=== PATIENT | male | born 1970 | race Hispanic/Latino ===

== ENCOUNTER 2018-04-06 12:28 | Emergency (ER) | payer SELFPAY ==
[2018-04-06 14:23] LABS: Bilirubin,Urine NEG (Negative); Blood,Urine NEG (Negative); Color,Urine Yellow (Yellow); Mucus,Urine FEW /HPF; Protein,Urine <15 mg/dL mg/dL (Negative); Urobilinogen,Urine < 2.0 mg/dL (<2.0)
[2018-04-06 14:30] LABS: WBC,Urine < 1.0 /HPF (0.0-6.0)
--- NOTE | 2018-04-06 14:56 | Emergency Department Report ---
ED Male HPI - General Chief complaint: Medical Clearance Stated complaint: TROUBLE URINATING Time Seen by Provider: 04/06/18 13:48 Source: patient, family Mode of arrival: Ambulatory Limitations: No Limitations - History of Present Illness Initial comments: This is a 47-year-old male that presents with urgency and difficulty urinating for the past 2 weeks. History of type 2 diabetes, depression, anxiety , and alcohol abuse. He is currently in treatment for alcohol abuse. Patient reports increased water intake with minimal improvement of symptoms. He is having difficulty starting stream and when it starts it is a dripping stream. No past history of BPH. He has not followed up with primary care provider in a couple years due to no insurance. Admits to straining with urination, frequency , and urgency. Denies history of, penile discharge, testicular swelling or pain , nausea or vomiting, and abdominal pain. MD Complaint: other (difficulty voiding) -: week(s) (2 weeks ) Radiation: none Severity: mild Severity scale (0 -10): 2 Consistency: constant Improves with: urination Worsens with: none denies other symptoms - Related Data Sexually active: Yes Previous Rx's Medication Instructions Recorded Last Taken Type Tamsulosin [Flomax] 0.4 mg PO QDAY #30 cap 04/06/18 Unknown Rx Allergies Allergy/AdvReac Type Severity Reaction Status Date / Time No Known Allergies Allergy Unverified 04/06/18 12:39 ED Review of Systems ROS: Stated complaint: TROUBLE URINATING Other details as noted in HPI Constitutional: denies: chills, fever Respiratory: denies: cough, shortness of breath, wheezing Cardiovascular: denies: chest pain, palpitations Gastrointestinal: denies: abdominal pain, nausea, diarrhea Genitourinary: urgency, frequency. denies: dysuria, hematuria, discharge, testicular pain, testicular mass Neurological: denies: headache, weakness, paresthesias Psychiatric: denies: anxiety, depression ED Past Medical Hx - Past Medical History Hx Diabetes: Yes Hx Psychiatric Treatment: Yes (anxiety, depression, ETOH) - Social History Smoking Status: Current Every Day Smoker - Medications Home Medications: Home Medications Medication Instructions Recorded Confirmed Last Taken Type Tamsulosin [Flomax] 0.4 mg PO QDAY #30 cap 04/06/18 Unknown Rx ED Physical Exam - General Limitations: No Limitations General appearance: alert, in no apparent distress - Respiratory Respiratory exam: Present: normal lung sounds bilaterally. Absent: respiratory distress - Cardiovascular Cardiovascular Exam: Present: regular rate, normal rhythm, normal heart sounds. Absent: systolic murmur, diastolic murmur, rubs, gallop - GI/Abdominal GI/Abdominal exam: Present: soft, normal bowel sounds. Absent: organomegaly, mass - Neurological Exam Neurological exam: Present: alert, oriented X3 - Psychiatric Psychiatric exam: Present: normal affect, normal mood - Skin Skin exam: Present: warm, dry, intact, normal color. Absent: rash ED Course Vital Signs 04/06/18 12:32 Temperature 98.5 F Pulse Rate 105 H Respiratory 16 Rate Blood Pressure 128/80 [Left] O2 Sat by Pulse 96 Oximetry ED Medical Decision Making - Lab Data Result diagrams: 04/06/18 14:59 - Medical Decision Making This is a 47 y.o. male that presents with difficulty voiding for 2 weeks. Patient is stable and was examined by me. Vitals normal. Obtained urinalysis, PSA, and BMP. Physical findings susceptible of BPH. Given Flomax 0.4 mg by mouth once in the ER. All labs within normal limits. Start Flomax and follow up with urology. Discussed plan with patient and he agreed with plan. Discharged home in stable condition. Follow up with PCP and urology in 24-72 hours. Critical care attestation.: If time is entered above; I have spent that time in minutes in the direct care of this critically ill patient, excluding procedure time. ED Disposition Clinical Impression: BPH (benign prostatic hyperplasia) Qualifiers: Lower urinary tract symptom presence: symptoms present Lower urinary tract symptom detail: straining on urination Qualified Code(s): N40.1 - Benign prostatic hyperplasia with lower urinary tract symptoms Disposition: TO HOME OR SELFCARE Is pt being admited?: No Does the pt Need Aspirin: No Condition: Stable Instructions: Benign Prostatic Hypertrophy (ED) Additional Instructions: Take Flomax daily. Follow-up with urology within the next week. Follow-up with the primary care provider referred to [facility]. Prescriptions: Tamsulosin [Flomax] 0.4 mg PO QDAY #30 cap Referrals: [facility] [Outside] - 3-5 Days [facility] [Outside] - 3-5 Days [facility] [Provider Group] - 3-5 Days Time of Disposition: 16:09 Print Language: AFGHAN
[2018-04-06 15:49] LABS: BUN/Creatinine Ratio 14; Blood Urea Nitrogen 11 mg/dL (9-20); Hemolysis Index 22
[2018-04-06] MEDS ORDERED: FLOMAX PO ONE (16:15)
[2018-04-06 17:03] VITALS: BP 118/92
== END 2018-04-06 16:55 | disposition home or self-care (01) ==
LOC: ED 12:28
DX: N40.1 Benign prostatic hyperplasia with lower urinary tract symptoms (principal); R39.15 Urgency of urination; R35.0 Frequency of micturition; E11.9 Type 2 diabetes mellitus without complications; F41.9 Anxiety disorder, unspecified; F32.9 Major depressive disorder, single episode, unspecified; F17.200 Nicotine dependence, unspecified, uncomplicated
CPT/HCPCS: 36415; 80048; 81001; 84153

== ENCOUNTER 2019-03-13 23:28 | Emergency (ER) | payer OTHER ==
--- NOTE | 2019-03-14 00:04 | Emergency Department Report ---
ED Psych HPI - General Stated Complaint: MH Time Seen by Provider: 03/13/19 23:55 - History of Present Illness Initial Comments: Patient is 48 years old male with history of depression and chronic alcoholism. Patient presented to the ER complaining of depression and suicidal ideation. Patient stated that he is thinking about hanging himself. Patient had a previous suicidal attempt by hanging himself. Patient stated that he has been drinking straight for the last 3 weeks. Patient shaking but denied any hallucination. CIWA protocol initiated. Patient denied any homicidal ideation, auditory or visual hallucination. MD Complaint: suicidal ideation, feels depressed Associated Psychiatric Symptoms: depression, suicidal ideation History of same: Yes Quality: constant Context: recent alcohol abuse Associated Symptoms: denies other symptoms If Self Harm: admits thoughts of, has plan, self-inflicted trauma - Related Data Home Medications Medication Instructions Recorded Confirmed Last Taken No Known Home Medications [No 03/13/19 03/13/19 Unknown Reported Home Medications] Allergies Allergy/AdvReac Type Severity Reaction Status Date / Time No Known Allergies Allergy Verified 04/06/18 16:16 ED Review of Systems ROS: Stated complaint: MH Other details as noted in HPI Comment: All other systems reviewed and negative Constitutional: denies: chills, fever Respiratory: denies: cough, shortness of breath, SOB with exertion Cardiovascular: denies: chest pain, palpitations Gastrointestinal: denies: abdominal pain, nausea, vomiting Musculoskeletal: denies: back pain Neurological: denies: headache ED Past Medical Hx - Past Medical History Previous Medical History?: Yes Hx Diabetes: No Hx Psychiatric Treatment: Yes (anxiety, depression, ETOH) - Surgical History Past Surgical History?: Yes Additional Surgical History: Left arm pins and rods - Social History Smoking Status: Current Every Day Smoker Substance Use Type: Alcohol - Medications Home Medications: Home Medications Medication Instructions Recorded Confirmed Last Taken Type No Known Home Medications [No 03/13/19 03/13/19 Unknown History Reported Home Medications] ED Physical Exam - General General appearance: alert, in no apparent distress, anxious - Head Head exam: Present: atraumatic, normocephalic, normal inspection - ENT ENT exam: Present: normal exam, normal orophraynx, mucous membranes moist - Neck Neck exam: Present: normal inspection, full ROM. Absent: tenderness, meningismus, lymphadenopathy, thyromegaly - Respiratory Respiratory exam: Present: normal lung sounds bilaterally - Cardiovascular Cardiovascular Exam: Present: regular rate, normal rhythm, normal heart sounds - GI/Abdominal GI/Abdominal exam: Present: soft, normal bowel sounds. Absent: distended, tenderness, guarding, rebound, rigid - Extremities Exam Extremities exam: Present: normal inspection, full ROM - Neurological Exam Neurological exam: Present: alert, oriented X3, CN II-XII intact, normal gait, reflexes normal - Psychiatric Psychiatric exam: Present: depressed, anxious, suicidal ideation. Absent: agitated, flat affect, manic, homicidal ideation - Skin Skin exam: Present: warm, intact, normal color ED Course Vital Signs 03/13/19 23:46 Temperature 98.0 F Pulse Rate 102 H Respiratory 18 Rate Blood Pressure 115/78 Blood Pressure 115/78 [Left] O2 Sat by Pulse 96 Oximetry Critical care attestation.: If time is entered above; I have spent that time in minutes in the direct care of this critically ill patient, excluding procedure time. ED Disposition Clinical Impression: Suicidal ideation, Alcohol abuse Disposition: [id number]/TX-[id number] PS[facility] HOSP/PSY UNIT Is pt being admited?: No Condition: Stable
[2019-03-14 00:30] LABS: Lymphocytes % (Auto) 23.7 % (13.4-35.0); Mean Corpuscular HGB Conc 33 % (32-34); Mean Corpuscular Volume 92 fl (84-94); Platelet Count 448 K/mm3 (140-440); Red Blood Count 4.89 M/mm3 (3.65-5.03); Red Cell Distribution Width 13.5 % (13.2-15.2)
[2019-03-14 00:31] LABS: Basophils # (Auto) 0.1 K/mm3 (0.0-0.1); Basophils % (Auto) 1.1 % (0.0-1.8); Eosinophils # (Auto) 0.1 K/mm3 (0.0-0.4); Eosinophils % (Auto) 0.8 % (0.0-4.3); Lymphocytes # (Auto) 2.8 K/mm3 (1.2-5.4); Monocytes # (Auto) 1.2 K/mm3 (0.0-0.8); Monocytes % (Auto) 9.9 % (0.0-7.3)
[2019-03-14 00:45] LABS: BUN/Creatinine Ratio 21; Blood Urea Nitrogen 19 mg/dL (9-20); Calcium 8.3 mg/dL (8.4-10.2); Hemolysis Index 9
[2019-03-14 00:56] LABS: Bilirubin,Urine NEG (Negative); Blood,Urine NEG (Negative); Color,Urine Yellow (Yellow); Mucus,Urine FEW /HPF; Protein,Urine <15 mg/dL mg/dL (Negative); Urobilinogen,Urine < 2.0 mg/dL (<2.0); WBC,Urine < 1.0 /HPF (0.0-6.0)
[2019-03-14 01:07] LABS: Amphetamine Screen,Urine PRESUMPTIVE NEGATIVE; Benzodiazepines Screen,Urine PRESUMPTIVE NEGATIVE; Cannabinoid Screen,Urine PRESUMPTIVE NEGATIVE; Cocaine Screen,Urine PRESUMPTIVE NEGATIVE; Methadone Screen,Urine PRESUMPTIVE NEGATIVE; Opiate Screen,Urine PRESUMPTIVE NEGATIVE
[2019-03-14] MEDS: ATIVAN PO PRN ×4 (02:39→17:37)
[2019-03-14] MEDS ORDERED: ATIVAN ONE (02:43)
--- NOTE | 2019-03-14 12:16 | Consultation ---
History of Present Illness - Reason for Consult Consult date: 03/14/19 Reason for consult: Mental Health Evaluation Requesting physician: SHERYL SHEPHERD - Chief Complaint Chief complaint: "I my life is useless" - History of Present Psychiatric Illness 48 y.o. white male who presented to the ER for SI's and ETOH. Today the patient is cooperative during the assessment. He stated that his life is "useless." He stated struggling with alcohol (etoh) for 30 plus years. He stated that he was dx with depression and anxiety several years ago. He stated he feel "hopeless" because nothing goes well in his life. He rate his depression/anxiety 7/10, with 10 being the worse. He stated that he has taken several antidepressants in the past. He acknowledged that he would hang himself if he had the chance. He stated that he have attempted suicide in the past. He denies SI/HI's and AVH's. He denies a poor appetite and erratic sleep. He denies recreational drug use. Medications and Allergies Allergies Allergy/AdvReac Type Severity Reaction Status Date / Time No Known Allergies Allergy Verified 04/06/18 16:16 Home Medications Medication Instructions Recorded Confirmed Last Taken Type No Known Home Medications [No 03/13/19 03/13/19 Unknown History Reported Home Medications] Active Meds: Active Medications Lorazepam (Ativan) 2 mg PO Q1HR PRN PRN Reason: ABHILASH-Capo 8-15 Last Admin: 03/14/19 02:39 Dose: 2 mg Documented by: Lorazepam (Ativan) 4 mg PO Q1HR PRN PRN Reason: ABHILASH-Capo 16- Last Admin: 03/14/19 09:20 Dose: 4 mg Documented by: Past psychiatric history - Past Medical History Past Medical History: No medical history Past Surgical History: No surgical history - past Psychiatric treatment and history psychiatric treatment history: Hx of alcohol abuse and depression. Fam hx of alcohol abuse. - Social History Social history: other (Homeless) Mental Status Exam - Vital signs Last Vital Signs Temp 96.2 F L 03/14/19 08:11 Pulse 98 H 03/14/19 08:11 Resp 18 03/14/19 08:11 BP 115/82 03/14/19 08:11 Pulse Ox 95 03/14/19 08:11 - Exam Narrative exam: MSE: Appearance: cooperative Behavior: poor eye contact Speech: regular rate and tone Mood: "depressed" Affect: congruent to mood Thought Process: circumstantial Thought Content: denies HI's and AVH's Motor Activity: sitting up in bed Cognition: A/O x3 Insight: fair Judgment: poor \\ Results Result Diagrams: 03/14/19 00:06 03/14/19 00:06 Abnormal lab results 03/14/19 03/14/19 03/14/19 Range/Units 00:06 00:06 00:06 WBC (4.5-11.0) K/mm3 Plt Count (140-440) K/mm3 Desha % (Auto) (0.0-7.3) % Desha # (0.0-0.8) K/mm3 Sodium 132 L (137-145) mmol/L Chloride 93.0 L (98-107) mmol/L Glucose 107 H (75-100) mg/dL Calcium 8.3 L (8.4-10.2) mg/dL Salicylates < 0.3 L (2.8-20.0) mg/dL Acetaminophen < 5.0 L (10.0-30.0) ug/mL Plasma/Serum Alcohol (0-0.07) % 03/14/19 03/14/19 Range/Units 00:06 00:06 WBC 11.7 H (4.5-11.0) K/mm3 Plt Count 448 H (140-440) K/mm3 Desha % (Auto) 9.9 H (0.0-7.3) % Desha # 1.2 H (0.0-0.8) K/mm3 Sodium (137-145) mmol/L Chloride (98-107) mmol/L Glucose (75-100) mg/dL Calcium (8.4-10.2) mg/dL Salicylates (2.8-20.0) mg/dL Acetaminophen (10.0-30.0) ug/mL Plasma/Serum Alcohol 0.13 H (0-0.07) % All other labs normal. Assessment and Plan Assessment and plan: Impression: MDD, Severe Type. Alcohol Use DO. Unspecified Anxiety DO. Today the patient is cooperative during the assessment. Mild to Moderate tremors noted (etoh). DDx: Alcohol Induced Mood DO Recommendation/Plan: Transitioned the patient to a 2013. Start Zoloft 50 mg PO daily for depression and Buspar 7.5 mg Po BID for anxiety. Continue CIWA. Discussed possible suicidality/medication induced rylan with the patient reference Zoloft. Informed the patient's assigned nurse that an order for line of sight for safety was placed. Dispo: The patient was referred to inpatient psy services. Will staff with Dr Sania Roldan.
[2019-03-14] MEDS: BUSPAR PO SCH ×2 (13:07→21:48)
[2019-03-14] MEDS: ZOLOFT PO SCH (13:07)
--- NOTE | 2019-03-15 09:44 | Progress Note ---
Subjective - Reason for Consult Consult date: 03/15/19 Reason for consult: Psychiatry Follow-up - Chief Complaint Chief complaint: "I didn't sleep well last night" 48 y.o. white male who presented to the ER for SI's and ETOH. Today the patient is calm during the assessment. He stated that he didn't sleep well last night. He continue to endorse SI's, but would not confirm or deny a suicide plan. He denies HI's and AVH's. He denies any side effects of his medications. Mental Status Exam - Vital signs Last Vital Signs Temp 97 F L 03/15/19 08:12 Pulse 91 H 03/15/19 08:12 Resp 18 03/15/19 08:12 BP 125/87 03/15/19 08:12 Pulse Ox 97 03/15/19 08:12 - Exam Narrative exam: MSE: Appearance: calm Behavior: poor eye contact Speech: regular rate and tone Mood: "depressed," withdrawn Affect: congruent to mood Thought Process: circumstantial Thought Content: denies HI's and AVH's Motor Activity: sitting up in bed Cognition: A/O x3 Insight: vague Judgment: poor \\ Assessment and Plan Impression: MDD, Severe Type. Alcohol Use DO. Unspecified Anxiety DO. Today the patient is calm during the assessment. Mild to Moderate tremors noted (etoh). DDx: Alcohol Induced Mood DO Recommendation/Plan:Continue 2012, Zoloft 50 mg PO daily for depression, and Buspar 7.5 mg PO BID for anxiety. Start Benadryl 25 mg PO HS for sleep. Continue CIWA. Discussed possible suicidality/medication induced rylan with the patient reference Zoloft. Informed the patient's assigned nurse that an order for line of sight for safety was placed. Dispo: The patient was referred to inpatient psy services. Will staff with Dr Sania Roldan.
[2019-03-15] MEDS: BUSPAR PO SCH ×2 (11:49→22:04)
[2019-03-15] MEDS: ZOLOFT PO SCH (11:49)
[2019-03-15] MEDS: BENADRYL PO SCH (22:03)
[2019-03-16] MEDS: ZOLOFT PO SCH (11:05)
[2019-03-16] MEDS: BUSPAR PO SCH ×2 (11:05→22:24)
--- NOTE | 2019-03-16 12:44 | Progress Note ---
Subjective - Reason for Consult Consult date: 03/16/19 Reason for consult: follow up - Chief Complaint Chief complaint: "I didn't sleep well last night" 48 y.o. white male who presented to the ER for SI's and ETOH. Today the patient is calm during the assessment. He stated that he didn't sleep well last night. He continue to endorse SI's, but would not confirm or deny a suicide plan. He denies HI's and AVH's. He denies any side effects of his medications. He wants to be back on seroquel. He complains of withdrawal symptoms and appears to have mild tremors. Although, he does not meet criteria for detox meds due to normal heart rate and blood pressure. Mental Status Exam - Vital signs Last Vital Signs Temp 97.8 F 03/16/19 10:09 Pulse 80 03/16/19 10:09 Resp 20 03/16/19 10:09 BP 122/90 03/16/19 10:09 Pulse Ox 97 03/16/19 10:09 - Exam Narrative exam: MSE: Appearance: calm Behavior: poor eye contact Speech: regular rate and tone Mood: "depressed," withdrawn, anxious Affect: congruent to mood Thought Process: circumstantial Thought Content: denies HI's and AVH's Motor Activity: sitting up in bed Cognition: A/O x3 Insight: vague Judgment: poor Assessment and Plan Impression: MDD, Severe Type. Alcohol Use DO. Unspecified Anxiety DO. Today the patient is calm during the assessment. He complains of withdrawal symptoms but b/p and heart rate are not elevated. He was informed of CIWA. He has chronic anxiety. DDx: Alcohol Induced Mood DO Recommendation/Plan:Continue 2012, Zoloft 50 mg PO daily for depression, and Buspar 7.5 mg PO BID for anxiety. Start Benadryl 25 mg PO HS for sleep. vistaril 25mg tid ordered for anxiety. seroquel 100mg hs ordered for mood. He states he is aware of metabolic risks and eps risk. Continue CIWA. Discussed possible suicidality/medication induced rylan with the patient reference Zoloft. Dispo: The patient was referred to inpatient psy services. Will staff with Dr Sania Roldan.
[2019-03-16] MEDS: VISTARIL PO PRN ×2 (13:35→22:30)
[2019-03-16] MEDS: BENADRYL PO SCH (22:24)
[2019-03-17] MEDS: BUSPAR PO SCH ×2 (11:06→22:00)
[2019-03-17] MEDS: ZOLOFT PO SCH (11:06)
--- NOTE | 2019-03-17 18:45 | Progress Note ---
Subjective - Reason for Consult Consult date: 03/17/19 Reason for consult: follow up - Chief Complaint Chief complaint: "I'm not good." 48 y.o. white male who presented to the ER for SI's and ETOH. Today the patient is calm during the assessment. He wants to know if he will be transferred. He was accepted to [facility]. He continues to endorse SI's, and says he would overdose. He denies HI's and AVH's. He denies any side effects of his medications. He complains of withdrawal symptoms and appears to have mild tremors. Although, he does not meet criteria for detox meds due to normal heart rate and blood pressure. Mental Status Exam - Vital signs Last Vital Signs Temp 98.3 F 03/17/19 14:17 Pulse 78 03/17/19 14:17 Resp 18 03/17/19 14:17 BP 130/79 03/17/19 14:17 Pulse Ox 97 03/17/19 14:17 - Exam Narrative exam: MSE: Appearance: calm Behavior: poor eye contact Speech: regular rate and tone Mood: "depressed," withdrawn, anxious Affect: congruent to mood Thought Process: circumstantial Thought Content: denies HI's and AVH's Motor Activity: sitting up in bed Cognition: A/O x3 Insight: vague Judgment: poor Assessment and Plan Impression: MDD, Severe Type. Alcohol Use DO. Unspecified Anxiety DO. Today the patient is calm during the assessment. He complains of withdrawal symptoms but b/p and heart rate are not elevated. He was informed of CIWA. He has chronic anxiety. DDx: Alcohol Induced Mood DO Recommendation/Plan:Continue 2012, Zoloft 50 mg PO daily for depression, and Buspar 7.5 mg PO BID for anxiety. use Benadryl 25 mg PO HS for sleep or vistaril. vistaril 25mg tid ordered for anxiety. seroquel 100mg hs ordered for mood. He states he is aware of metabolic risks and eps risk. Continue CIWA. Discussed possible suicidality/medication induced rylan with the patient reference Zoloft. Dispo: The patient was referred to inpatient psy services. Will staff with Dr Sania Roldan.
[2019-03-17] MEDS: BENADRYL PO SCH (22:00)
--- NOTE | 2019-03-18 10:04 | Progress Note ---
Subjective - Reason for Consult Consult date: 03/18/19 Reason for consult: Psychiatry Follow-up - Chief Complaint Chief complaint: "I'm still not well" 48 y.o. white male who presented to the ER for SI's and ETOH. Today the patient is calm, but somewhat preoccupied during the assessment. He struggled to answer questions during the assessment, He stated, "I don;t know what's wrong with me." He would not confirm or deny SI's. He denies HI's and AVH's. He denies any side effects of his medications. Mental Status Exam - Vital signs Last Vital Signs Temp 97.8 F 03/18/19 08:00 Pulse 90 03/18/19 08:00 Resp 18 03/18/19 08:00 BP 124/90 03/18/19 08:00 Pulse Ox 98 03/18/19 08:00 - Exam Narrative exam: MSE: Appearance: calm Behavior: poor eye contact Speech: regular rate and tone Mood: preoccupied Affect: congruent to mood Thought Process: circumstantial Thought Content: denies HI's and AVH's Motor Activity: fidgety Cognition: A/O x3 Insight: vague Judgment: poor \\ Assessment and Plan Impression: MDD, Severe Type. Alcohol Use DO. Unspecified Anxiety DO. Today the patient is calm during the assessment. Mild tremors noted (etoh). DDx: Alcohol Induced Mood DO Recommendation/Plan: Continue 2012, Zoloft 50 mg PO daily for depression, Buspar 7.5 mg PO BID for anxiety, Benadryl 25 mg PO HS for sleep,a nd Seroquel 100 mg PO HS for mood. Continue CIWA. Discussed possible suicidality/medication induced rylan with the patient reference Zoloft. Informed the patient's assigned nurse that an order for line of sight for safety was placed. Dispo: The patient was accepted at [facility] for inpatient psy services pending transport time. Will staff with Dr Sania Roldan.
[2019-03-18] MEDS: BUSPAR PO SCH ×2 (10:08→22:14)
[2019-03-18] MEDS: ZOLOFT PO SCH (10:08)
[2019-03-18] MEDS: VISTARIL PO PRN ×2 (11:22→22:14)
[2019-03-18] MEDS: ATIVAN PO PRN (17:00)
[2019-03-18] MEDS: BENADRYL PO SCH (22:14)
--- NOTE | 2019-03-19 11:11 | Progress Note ---
Subjective - Reason for Consult Consult date: 03/19/19 Reason for consult: Psychiatry Follow-up - Chief Complaint Chief complaint: "I don't have anything to say" 48 y.o. white male who presented to the ER for SI's and ETOH. Today the patient is calm during the assessment. He answered some questions askedo f him. He was asked about being suicidal, he just stared at me the provider. No gestures of HI's. No indications of side effects of his medications. Mental Status Exam - Vital signs Last Vital Signs Temp 97.8 F 03/19/19 07:30 Pulse 106 H 03/19/19 07:30 Resp 18 03/19/19 07:30 BP 112/79 03/19/19 07:30 Pulse Ox 97 03/19/19 07:30 - Exam Narrative exam: MSE: Appearance: calm Behavior: poor eye contact Speech: regular rate and tone Mood: "tired" Affect: congruent to mood Thought Process: unable to assess Thought Content: No gestures of HI's Motor Activity: sitting up Cognition: A/O x3 Insight: unable to assess Judgment: unable to assess \\ Assessment and Plan Impression: MDD, Severe Type. Alcohol Use DO. Unspecified Anxiety DO. Today the patient is calm during the assessment. Mild tremors noted (etoh). DDx: Alcohol Induced Mood DO Recommendation/Plan: Continue 2012, Zoloft 50 mg PO daily for depression, Buspar 7.5 mg PO BID for anxiety, Benadryl 25 mg PO HS for sleep,a nd Seroquel 100 mg PO HS for mood. Continue CIWA. Discussed possible suicidality/medication induced rylan with the patient reference Zoloft. Informed the patient's assigned nurse that an order for line of sight for safety was placed. Dispo: The patient was accepted at [facility] for inpatient psy services pending transport time. Will staff with Dr Sania Roldan.
[2019-03-19] MEDS: BUSPAR PO SCH ×2 (12:50→21:55)
[2019-03-19] MEDS: ATIVAN PO PRN (12:51)
[2019-03-19] MEDS: ZOLOFT PO SCH (12:51)
[2019-03-19] MEDS: BENADRYL PO SCH (21:55)
[2019-03-19] MEDS: VISTARIL PO PRN (21:55)
[2019-03-20] MEDS: BUSPAR PO SCH (10:27)
[2019-03-20] MEDS: ZOLOFT PO SCH (10:27)
[2019-03-20] MEDS: ATIVAN PO PRN (11:42)
--- NOTE | 2019-03-20 14:33 | Progress Note ---
Subjective - Reason for Consult Consult date: 03/20/19 Reason for consult: Psychiatric Follow-up Evaluation - Chief Complaint Chief complaint: "I have anxiety" Patient is a 48 y.o. male who presented to the ER for SI's and ETOH. Today the patient is cooperative but anxious during the assessment. Patient endorses depressed mood, anxiety, and intermittent SI's without a plan. He rates depression 8/10, with 10 being the worse. He reports good appetite and decrease sleep. Per patient he is medication compliant. Medication is partially effective. No indications of side effects of his medications. He denies HI's, A/VH's , and delusions. Mental Status Exam - Vital signs Last Vital Signs Temp 97.9 F 03/20/19 08:57 Pulse 79 03/20/19 08:57 Resp 18 03/20/19 08:57 BP 114/82 03/20/19 08:57 Pulse Ox 96 03/20/19 08:57 - Exam Narrative exam: Mental Status Exam Appearance: calm Behavior: poor eye contact Speech: regular rate and tone Mood: "depressed and anxious" Affect: congruent to mood Thought Process: organized Thought Content: + intermittent SI's w/o plan; Denies HI's, A/VH's, and delusions Motor Activity: ambulatory Cognition: A/O x 3 Insight: variable Judgment: variable Assessment and Plan Impression: MDD, Severe Type. Alcohol Use DO. Unspecified Anxiety DO. Today the patient is cooperative but anxious during the assessment. Mild tremors noted (etoh). He endorses depressed mood and anxiety. DDx: Alcohol Induced Mood DO Recommendation/Plan: 1. Continue 2012. 2. Continue Zoloft 50 mg PO daily for depression, Buspar 7.5 mg PO BID for anxiety, Benadryl 25 mg PO HS for sleep,a nd Seroquel 100 mg PO HS for mood. Continue CIWA. Discussed possible suicidality/medication induced rylan with the patient reference Zoloft. Informed the patient's assigned nurse that an order for line of sight for safety was placed. Disposition: The patient was accepted at [facility] for inpatient psy services. Awaiting transport. Will staff with Dr. Sania Roldan.
[2019-03-20 15:54] VITALS: BP 119/72
== END 2019-03-20 17:52 ==
LOC: EEVIPCON 23:28 → ED 23:28
DX: F10.10 Alcohol abuse, uncomplicated (principal); F32.9 Major depressive disorder, single episode, unspecified; F17.200 Nicotine dependence, unspecified, uncomplicated; F41.9 Anxiety disorder, unspecified
CPT/HCPCS: 36415; 80048; 80307; 81001; 85025; 99285; G0480; 80320; Q0177

== ENCOUNTER 2019-04-01 09:19 | Emergency (ER) | payer OTHER ==
--- NOTE | 2019-04-01 09:58 | Emergency Department Report ---
HPI - General Chief Complaint: Medical Clearance Time Seen by Provider: 04/01/19 09:35 - HPI HPI: 48-year-old male presents to the emergency department from [facility] for evaluation after he had an episode this morning that was concern for a dystonic reaction. The patient had woken up this morning and everything was normal but slowly started becoming very tense and he "locked up" to the upper extremities, torso, neck and head. Patient says he was unable to move. He was given 25 mg of IM Benadryl at [facility] and another 50 mg in route with EMS. Upon arrival here, the patient is awake and alert, he is moving all his extremities and there is no further signs of being "locked up." He says that he is feeling improved. He says that he is currently being treated at the psychiatric facility due to extreme anxiety. The patient takes Celexa. The patient says that he was feeling severe anxiety prior to this occurring and the anxiety started last night. He denies any headache, vision changes, slurred speech. ED Past Medical Hx - Past Medical History Hx Diabetes: No Hx Psychiatric Treatment: Yes (anxiety, depression, ETOH) - Surgical History Additional Surgical History: Left arm pins and rods - Social History Smoking Status: Never Smoker Substance Use Type: Alcohol - Medications Home Medications: Home Medications Medication Instructions Recorded Confirmed Last Taken Type No Known Home Medications [No 03/13/19 03/13/19 Unknown History Reported Home Medications] ED Review of Systems ROS: Stated complaint: DYSTONIC REACTION Other details as noted in HPI Constitutional: denies: chills, fever Eyes: denies: eye pain, vision change ENT: denies: ear pain, throat pain Respiratory: denies: cough, shortness of breath Cardiovascular: denies: chest pain, palpitations Gastrointestinal: denies: abdominal pain, vomiting Genitourinary: denies: dysuria, discharge Musculoskeletal: denies: back pain, arthralgia Skin: denies: rash, lesions Neurological: headache, other ("locked up") Psychiatric: anxiety Physical Exam - Physical Exam Vital Signs: Vital Signs 04/01/19 09:25 Temperature 98.1 F Pulse Rate 88 Respiratory 19 Rate Blood Pressure 134/92 O2 Sat by Pulse 96 Oximetry Physical Exam: GENERAL: The patient is well-developed well-nourished. HENT: Normocephalic. Atraumatic. Patient has moist mucous membranes. EYES: Extraocular motions are intact. Pupils equal reactive to light bilaterally. NECK: Supple. Trachea is midline. CHEST/LUNGS: Clear to auscultation. There is no respiratory distress noted. HEART/CARDIOVASCULAR: Regular. There is no tachycardia. There is no murmur. ABDOMEN: Abdomen is soft, nontender. Patient has normal bowel sounds. There is no abdominal distention. SKIN: Skin is warm and dry. NEURO: The patient is awake, alert, and cooperative. The patient has no focal neurologic deficits. The patient has normal speech. MUSCULOSKELETAL: There is no tenderness or deformity. There is no limitation range of motion. There is no evidence of acute injury. ED Course Vital Signs 04/01/19 09:25 Temperature 98.1 F Pulse Rate 88 Respiratory 19 Rate Blood Pressure 134/92 O2 Sat by Pulse 96 Oximetry ED Medical Decision Making - Lab Data Result diagrams: 04/01/19 10:15 04/01/19 10:15 - Radiology Data Radiology results: report reviewed CT HEAD WITHOUT CONTRAST: HISTORY: Weakness. TECHNIQUE: Sequential 2.5mm CT images. COMPARISON: none. FINDINGS: Cerebral Parenchyma: Within normal limits. Cerebellum: Within normal limits. Brainstem: Within normal limits. Ventricles: Normal. Sella: Normal. Extra-axial spaces: Normal. Basal Cisterns: Normal. Intracranial Hemorrhage: None. Midline Shift: None. Calvarium: Normal. Sinuses: There is moderate a mucosal thickening and trace fluid in the left maxillary sinus. Partial opacification of the ethmoid air cells. The remaining sinuses are clear. Mastoid Air Cells: Normal. Visualized Orbits: Normal. IMPRESSION: Cranial CT scan within normal limits. Mild chronic sinus disease. Transcribed By: TTR Dictated By: WILBERT KENNEDY JR, MD Electronically Authenticated By: WILBERT KENNEDY JR, MD Signed Date/Time: 04/01/19 1032 - Medical Decision Making This patient presents from his psychiatric facility with concern for having an episode where he was awake but unable to speak, move his arms and his torso. The patient says that he was awake for that experience and remembers it. Since being in the emergency department, the patient has been awake and oriented and does not appear in any acute distress. He is able to move all of his extremities and has no restrictions to range of motion to any area of his body. He has a slightly flat affect but otherwise he is conversive and appropriate. Patient's labs have been unremarkable including a CBC, metabolic panel and thyro id level. CT of the head without contrast did not show any bleed, shift, mass, ischemia, or any other acute process. There was one episode while in the emergency department with the patient was sitting up with his mouth remaining wide open. I spoke with the patient at this time and he says that it felt similar to the episode earlier in the day. However in having this discussion about his symptoms at that time, as well as my plan for treatment, the patient was able to close his mouth and form words. For this reason, I feel that his symptoms may be psychiatric as opposed to medical. He is currently being treated at a psychiatric facility. It does not appear consistent with any normal dystonic reaction and the patient is not on any antipsychotic medications, only an SSRI. His vital signs and stable throughout his ED course. The patient will be discharged back to his psychiatric facility and will return to the ER with any worsening of his symptoms or any acute distress. - Differential Diagnosis dystonic reaction, anxiety, electrolyte abnormalities Critical Care Time: No Critical care attestation.: If time is entered above; I have spent that time in minutes in the direct care of this critically ill patient, excluding procedure time. ED Disposition Clinical Impression: Anxiety, Medical clearance for psychiatric admission Disposition: [id number] PSY HOSP/PSY UNIT Is pt being admited?: No Condition: Stable Instructions: Anxiety (ED) Additional Instructions: Please follow up with the psychiatrists at [facility] in regards to your anxiety and the anxiety/stress reactions that you appear to have been having. Return to the emergency department with any further concerns, worsening of your symptoms, or with any acute distress. Referrals: PATTY JUDGE MD [Primary Care Provider] - 3-5 Days Time of Disposition: 12:05
[2019-04-01 10:34] LABS: Mean Corpuscular HGB Conc 34 % (32-34); Mean Corpuscular Volume 92 fl (84-94); Platelet Count 448 K/mm3 (140-440); Red Blood Count 4.11 M/mm3 (3.65-5.03); Red Cell Distribution Width 14.1 % (13.2-15.2)
--- NOTE | 2019-04-01 10:37 | Cat Scan Report ---
CT HEAD WITHOUT CONTRAST: HISTORY: Weakness. TECHNIQUE: Sequential 2.5mm CT images. COMPARISON: none. FINDINGS: Cerebral Parenchyma: Within normal limits. Cerebellum: Within normal limits. Brainstem: Within normal limits. Ventricles: Normal. Sella: Normal. Extra-axial spaces: Normal. Basal Cisterns: Normal. Intracranial Hemorrhage: None. Midline Shift: None. Calvarium: Normal. Sinuses: There is moderate a mucosal thickening and trace fluid in the left maxillary sinus. Partial opacification of the ethmoid air cells. The remaining sinuses are clear. Mastoid Air Cells: Normal. Visualized Orbits: Normal. IMPRESSION: Cranial CT scan within normal limits. Mild chronic sinus disease.
[2019-04-01 10:48] LABS: BUN/Creatinine Ratio 12; Blood Urea Nitrogen 11 mg/dL (9-20); Calcium 9.1 mg/dL (8.4-10.2); Hemolysis Index 8
[2019-04-01] MEDS ORDERED: ATIVAN IV ONE (11:07)
[2019-04-01 12:04] VITALS: BP 108/64
[2019-04-01 13:05] LABS: Basophils % (Manual) 0 % (0.0-1.8); Eosinophils % (Manual) 0 % (0.0-4.3); Platelet Estimate Consistent w Auto; RBC Morphology Normal; Total Cells Counted 100
== END 2019-04-01 13:22 ==
LOC: ED 09:19
DX: F41.9 Anxiety disorder, unspecified (principal); R53.1 Weakness; F32.9 Major depressive disorder, single episode, unspecified
CPT/HCPCS: 36415; 70450; 80048; 82550; 83735; 85007; 85025; 96374; 99285; J2060